=== PATIENT | female | born 1975 | race Caucasian/White ===

== ENCOUNTER 2018-07-05 16:09 | Emergency (ER) | payer BC ==
[~2018-07-05] VITALS: Ht 165.1 cm; Wt 86.2 kg
[2018-07-05 16:29] LABS: ABSOLUTE BASOPHILS 0.1 thou/uL (0.0-0.2); ABSOLUTE EOSINOPHILS 0.4 thou/uL (0.0-0.7); ABSOLUTE MONOCYTES 0.9 thou/uL (0.0-1.2); ABSOLUTE NEUTROPHILS 8.1 thou/uL (1.6-8.1); BASOPHILS 0.7 %; EOSINOPHILS 3.6 %; HEMATOCRIT 34.7 % (37.0-47.0); HEMOGLOBIN 11.7 gm/dL (12.0-15.0); LYMPHOCYTES 17.6 %; MCH 30.7 pg (26.0-34.0); MCHC 33.6 g/dL (28.0-37.0); MCV 91.5 fL (80.0-100.0); MONOCYTES 7.9 %; MPV 8.2 fl. (7.2-11.1); NUCLEATED RBCS 0 /100WBC; PLATELET COUNT* 311 thou/uL (150-400); POLYS 70.2 %; RDW-CV 14.1 % (10.5-14.5); WBC 11.5 thou/uL (4.0-11.0)
[2018-07-05 16:39] LABS: CALCIUM 9.4 mg/dL (8.5-10.1); CREATININE 0.7 mg/dL (0.6-1.3); PROTIME 10.1 Seconds (9.20-11.50)
[2018-07-05 16:57] LABS: MAGNESIUM 1.8 mg/dL (1.8-2.4); TOTAL BILIRUBIN 0.3 mg/dL (<0.1-1.0); TOTAL PROTEIN 8.1 g/dL (6.4-8.2)
[2018-07-05] MEDS ORDERED: TESSALON PERLE100 M1 PO (17:02)
[2018-07-05 17:13] VITALS: BP 138/77
--- NOTE | 2018-07-06 09:59 | EKG ---
[place] [address] ELECTROCARDIOGRAM REPORT Name: DOROTHEA RENDON Room: [facility]#: [id number] Admission: 07/05/18 Attend Phys: Discharge: 07/05/18 Date of : 73 Report #: [id number] THIS REPORT FOR: //name// [facility] ED Test Date: 2018-07-05 Test Time: 16:13:59 Pat Name: DOROTHEA RENDON Department: Room: Gender: F Tour Leader: LUISA : 1975 Requested By: Sid Figueroa Order Number: [id number] MD: Brooks Whyte Measurements Intervals [place] Rate: 80 P: 41 WI: 130 QRS: 37 QRSD: 94 T: 9 QT: 360 QTc: 416 Interpretive Statements Sinus rhythm Baseline wander in lead(s) V4,V5,V6 No previous ECG available for comparison Electronically Signed On 07-06-2018 9:59:32 [employer] by Brooks Whyte [email or web address] <ELECTRONICALLY SIGNED> By: Brooks Whyte MD, [facility] 07/06/18 0959 D: 11/1612 12 Brooks Whyte MD, FACC /EPI
== END 2018-07-05 17:13 | disposition home or self-care (01) ==
LOC: M.ERS 16:09
PROVIDERS: Emergency Medicine Emergency Medical Services
DX: R07.89 Other chest pain (principal); J06.9 Acute upper respiratory infection, unspecified

== ENCOUNTER 2021-10-13 13:27 | Emergency (ER) | payer OTHER ==
[~2021-10-13] VITALS: Ht 162.6 cm; Wt 63.5 kg
[~2021-10-13 13:27] MED LIST: TESSALON PERLE100 M1 PO
[2021-10-13] MEDS ORDERED: AMOX TR-K CLV1 EAC4 PO (14:35)
[2021-10-13 14:38] VITALS: BP 113/59
== END 2021-10-13 14:38 | disposition home or self-care (01) ==
LOC: M.ERS 13:27
DX: S01.511A Laceration without foreign body of lip, initial encounter (principal); W54.0XXA Bitten by dog, initial encounter; Y93.89 Activity, other specified; Y92.89 Other specified places as the place of occurrence of the external cause; Y99.8 Other external cause status